=== PATIENT | female | born 1955 | race American Indian/Alaskan Native ===

== ENCOUNTER 2016-08-10 09:28 | Outpatient (CLI) | payer OTHER ==
--- NOTE | 2016-08-10 11:28 | Ultrasound Report ---
ULTRASOUND RENAL BILATERAL HISTORY: Hypertension, hematuria. TECHNIQUE: transabdominal ultrasound with color Doppler interrogation. FINDINGS: Scans of the kidneys show normal renal contours. There is normal central calyceal clustering and good preservation of the cortical thickness. There is no evidence of mass or hydronephrosis. The views of the bladder and the region of the ureters appear normal. IMPRESSION: Unremarkable renal ultrasound.
== END 2016-08-10 09:29 | disposition home or self-care (01) ==
LOC: US 09:28
PROVIDERS: ATTEND Family Medicine
DX: I10 Essential (primary) hypertension (principal); R31.9 Hematuria, unspecified
CPT/HCPCS: 76770